=== PATIENT | male | born 1995 | race Hispanic/Latino ===

== ENCOUNTER 2019-09-03 10:51 | Day surgery (SDC) | payer BC ==
[2019-09-03] MEDS ORDERED: LACTATED RINGERS 1,000 ML IV SCH (12:00)
[2019-09-03] MEDS ORDERED: ZOFRAN IV PRN (12:00)
--- NOTE | 2019-09-03 12:01 | Anesthesia Day of Surgery ---
Anesthesia Day of Surgery - Day of Surgery Patient Examined: Yes Patient H&P Reviewed: Yes Patient is NPO: Yes
--- NOTE | 2019-09-03 12:04 | Anesthesia Consultation ---
Anesthesia Consult and Med Hx Date of service: 09/03/19 - Airway Anesthetic Teeth Evaluation: Good ROM Head & Neck: Adequate Mental/Hyoid Distance: Adequate Mallampati Class: Class II Intubation Access Assessment: Good - Pre-Operative Health Status ASA Pre-Surgery Classification: ASA1 Proposed Anesthetic Plan: General - Pulmonary Hx Smoking: No Hx Asthma: Yes ( CHILD ONLY) Hx Sleep Apnea: No (WES PRE SCREEN LOW RISK) - Cardiovascular System Hx Hypertension: No - Other Systems Hx Cancer: No
[2019-09-03] MEDS ORDERED: BSS ONE (12:17)
[2019-09-03] MEDS ORDERED: BSS OU NR (12:30)
[2019-09-03] MEDS ORDERED: ANCEF/STERILE WATER 2 GM/20 ML IV NR (12:30)
[2019-09-03] MEDS ORDERED: SUBLIMAZE IV PRN (12:30)
[2019-09-03] MEDS ORDERED: SUBLIMAZE ONE (12:49)
[2019-09-03] MEDS ORDERED: XYLOCAINE MPF 2% ONE (12:49)
[2019-09-03] MEDS ORDERED: ZOFRAN ONE (12:49)
[2019-09-03] MEDS ORDERED: DIPRIVAN 10 MG/ML IV ONE (12:50)
--- NOTE | 2019-09-03 13:06 | Post Operative Note ---
Date of procedure: 09/03/19 Pre-op diagnosis: sterilization micro hem Post-op diagnosis: same Findings: vasa Procedure: vas and flex cysto Anesthesia: GETA Surgeon: REJI ROUSE Estimated blood loss: minimal Pathology: list (vasa) Specimen disposition: to lab Condition: stable Disposition: PACU
--- NOTE | 2019-09-03 13:08 | Discharge Summary ---
Short Stay Discharge Plan Activity: other (no straining ) Weight Bearing Status: Full Weight Bearing Diet: regular Wound: open to air, other (ice inRR) Special Instructions: other (ice) Follow up with: PRIMARY CARE, [Primary Care Provider] - 7 Days REJI ROUSE MD [Staff Physician] - 6 Weeks
[2019-09-03] MEDS ORDERED: DECADRON ONE (13:10)
[2019-09-03] MEDS ORDERED: NACL 0.9% IR ONE (13:38)
[2019-09-03] MEDS ORDERED: WATER FOR IRRIG STERILE IR ONE (13:38)
[2019-09-03] MEDS ORDERED: TRIPLE ANTIBIOTIC TP ONE ×2 (13:48→14:07)
--- NOTE | 2019-09-03 14:06 | Operative Report ---
PREOPERATIVE DIAGNOSES: Elective sterilization, microscopic hematuria. POSTOPERATIVE DIAGNOSES: Elective sterilization, microscopic hematuria. PROCEDURE: Flexible cystoscopy and bilateral partial vasectomy. SURGEON: Dr. Lozada. ANESTHESIA: General. FINDINGS: This is a gentleman who presented for vasectomy. He had microscopic hematuria, workup so far was negative. He now presents for flexible cystoscopy and vasectomy. DESCRIPTION OF PROCEDURE: The patient was brought to the operating room and placed on the operating table. Following induction of anesthesia, he was placed in the supine position, prepped and draped in usual sterile fashion. It should be noted that there was some excoriation scrotum, partially from his shaving and partially from the clitoris before I came into the room. At this point, a flexible cystoscopy showed no lesions, no acute findings. Bladder was smooth and symmetrical. A small incision was made over the midline of the scrotum and both vases were delivered separately first on the right, then on the left. We were able to doubly tie both vasa with silk and divided the vasa and sent the specimen and cauterized the lumen. The patient tolerated the procedure well. No significant complications. A portion was sent to pathology. Wound was irrigated and closure was accomplished in 2-3 sutures of 3-0 chromic. The patient tolerated the procedure well. All ointment was applied to the excoriation and the patient was brought to recovery in stable condition. JOB# [id number] DOUG/RANJANA
[2019-09-03 14:48] VITALS: BP 125/70
--- NOTE | 2019-09-03 16:07 | Post Anesthesia Evaluation ---
- Post Anesthesia Evaluation Patient Participated: Yes Airway Patent: Yes Stable Respiratory Function: Yes Nausea/Vomiting: No Temp > 96.8F: Yes Pain Manageable: Yes Adequeate Hydration: Yes Anesthesia Complications: No Block Receding Appropriately: Not Applicable Patient on Ventilator: No
== END 2019-09-03 16:00 | disposition home or self-care (01) ==
LOC: OR 10:51
PROVIDERS: ATTEND Urology
DX: Z30.2 Encounter for sterilization (principal); R31.29 Other microscopic hematuria; J45.909 Unspecified asthma, uncomplicated; Z79.899 Other long term (current) drug therapy; Z98.890 Other specified postprocedural states
CPT/HCPCS: 52000; 55250; 88302; A4217; J0690; J1100; J2405; J2704; J3010; J7120; A6250